=== PATIENT | female | born 1975 ===

== ENCOUNTER 2020-12-08 12:00 | Inpatient (IN) | payer OTHER ==
[~2020-12-08] VITALS: Ht 162.6 cm; Wt 99.8 kg
[2020-12-08] MEDS ORDERED: CYMBALTA30 MG PO (14:27)
[2020-12-14] MEDS ORDERED: MAXIMUM D3325 MCG (13:36)
[2020-12-14] MEDS ORDERED: BUPROPION XL300 MG (13:36)
[2020-12-14] MEDS ORDERED: RESTORIL30 MG (13:36)
[2020-12-14] MEDS ORDERED: TRAZODONE HCL150 MG (13:36)
[2020-12-14] MEDS ORDERED: LORAZEPAM1 MG (13:36)
[2020-12-14] MEDS ORDERED: BUSPIRONE HCL10 MG (13:36)
[2020-12-14] MEDS ORDERED: DULOXETINE HCL60 MG (13:37)
[2020-12-14] MEDS ORDERED: METHOTREXATE2.5 MG (13:37)
[2020-12-14] MEDS ORDERED: FOLIC ACID1 MG (13:37)
[2020-12-14] MEDS ORDERED: GABAPENTIN400 MG (13:37)
[2020-12-14] MEDS ORDERED: HYDROXYCHLOROQ200 MG (13:37)
[2020-12-16] MEDS ORDERED: POLY119PG PO (06:54)
[2020-12-16] MEDS ORDERED: SIMETHICONE125 M1 PO (06:54)
[2020-12-16] MEDS ORDERED: NEURONTIN600 MG PO (06:54)
[2020-12-16] MEDS ORDERED: IBUPROFEN800 MG PO (06:54)
== END 2020-12-16 08:24 | disposition home or self-care (01) | DRG 743 ==
LOC: OB/GYN 12-14 06:34 → O/R 12-14 06:34 → OB/GYN 12-14 10:00
PROVIDERS: ADMIT Obstetrics & Gynecology; ATTEND Obstetrics & Gynecology
PROC: 0UB70ZZ Excision of Bilateral Fallopian Tubes, Open Approach (ICD-10-PCS; 2020-12-14)
PROC: 0UT90ZZ Resection of Uterus, Open Approach (ICD-10-PCS; principal; 2020-12-14 10:00)
DX: D25.1 Intramural leiomyoma of uterus (principal); D25.2 Subserosal leiomyoma of uterus; N80.0 Endometriosis of uterus; N72 Inflammatory disease of cervix uteri; N93.9 Abnormal uterine and vaginal bleeding, unspecified; I10 Essential (primary) hypertension; N83.8 Other noninflammatory disorders of ovary, fallopian tube and broad ligament